=== PATIENT | female | born 1965 | race Caucasian/White ===

== ENCOUNTER → 2017-09-28 | Outpatient (CLI) | payer BC ==
[~2017-09-28] MED LIST: TMF75 PO
--- NOTE | 2017-09-28 12:57 | DIAGNOSTIC IMAGING REPORT ---
RIGHT HIP 2 VIEWS HISTORY: RIGHT HIP PAIN COMPARISON: None. FINDINGS: There is no fracture or dislocation. Soft tissues are unremarkable. The visualized pelvic bones are intact. Mild right hip osteoarthritis demonstrated by mild caudal space narrowing, subchondral sclerosis, and marginal osteophytes. IMPRESSION: No fracture or dislocation within the right hip. Mild right hip osteoarthritis. Electronically signed by: Erick Ritchie M.D. 09/28/2017 12:56 PM Dictated Date/Time: 09/28/2017 12:54 PM
== END | disposition home or self-care (01) ==
LOC: C.RDSM 12:47
PROVIDERS: ATTEND Internal Medicine
DX: M25.551 Pain in right hip (principal)